=== PATIENT | female | born 1985 | race Caucasian/White ===

== ENCOUNTER 2022-01-31 19:26 | Emergency (ER) | payer OTHER ==
[2022-01-31] MEDS ORDERED: MEDROL 4MG DOSEP4 MG PO (20:54)
[2022-01-31] MEDS ORDERED: EPIPEN 2-P0.3 MG/0.3 IM (21:00)
== END 2022-01-31 21:54 | disposition home or self-care (01) ==
LOC: FER 19:26
DX: T78.40XA Allergy, unspecified, initial encounter (principal); F17.200 Nicotine dependence, unspecified, uncomplicated
CPT/HCPCS: 99283; J7512